=== PATIENT | female | born 1960 | race Hispanic/Latino ===

== ENCOUNTER 2020-02-10 13:39 | Emergency (ER) | payer SELFPAY ==
[2020-02-10 14:06] VITALS: BP 142/65
--- NOTE | 2020-02-10 14:37 | XRay Report ---
CHEST 1 VIEW INDICATION: Chest Pain. COMPARISON: None FINDINGS: SUPPORT DEVICES: None. HEART: Within normal limits. LUNGS/PLEURA: Large amount of overlying breast tissue at least in part obscures evaluation of the chuck g bases; however, the lungs are grossly clear. ADDITIONAL FINDINGS: None. IMPRESSION: 1. Grossly clear lungs as described above. Signer Name: Jeremy Enciso MD Signed: 02/10/2020 2:32 PM Workstation Name: [id number]
--- NOTE | 2020-02-10 15:59 | Emergency Department Report ---
ED Chest Pain HPI - General Chief Complaint: Chest Pain Stated Complaint: SHORTNESS OF BREATH Time Seen by Provider: 02/10/20 14:08 Source: patient, EMS Mode of arrival: Stretcher Limitations: No Limitations - History of Present Illness Initial Comments: This is a 59-year-old lady with a variety of complaints. She states that she has soreness and her left anterior thigh for the last few days. Today she developed soreness around her left shoulder and left pectoral area with some left upper arm soreness as well. She states that these areas are tender and that the tenderness increases on movement. She states that she made an appointment for tomorrow with a electrophysiology nurse practitioner in [place]. She admits to be under excessive stress. 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 She also tells me that she has had episodes of exertional chest pain which is different and more like a pressure in her substernal area. She states that the last time this happened was 2 to 3 weeks ago. Patient denies any associated nausea vomiting sweating or shortness of breath with the above left arm chest and thigh pain. She is not been coughing. She has no history of cardiovascular work-up. She has no history of venous thromboembolism. She states that she has not been to a physician for evaluation of chest pain in the past. MD Complaint: chest pain -: Gradual, week(s) Onset: during rest Pain Location: left chest Severity: moderate Severity scale (0 -10): 5 Quality: aching Consistency: intermittent Improves With: nothing Worsens With: nothing re: denies: nausea, vomting, diaphoresis Other Symptoms: denies: cough, fever, syncope Treatments Prior to Arrival: none Aspirin use within the Past 7 Days: (0) No - Related Data Allergies Allergy/AdvReac Type Severity Reaction Status Date / Time No Known Allergies Allergy Verified 02/10/20 13:49 Heart Score - HEART Score History: Slightly suspicious EKG: Normal Age: < 45 Risk factors: No known risk factors Troponin: < normal limit HEART Score: 0 - Critical Actions Critical Actions: 0-3 pts:0.9-1.7%risk of adverse cardiac event.Candidate for discharge ED Review of Systems ROS: Stated complaint: SHORTNESS OF BREATH Other details as noted in HPI Constitutional: denies: chills, fever Eyes: denies: eye pain, eye discharge, vision change ENT: denies: ear pain, throat pain Respiratory: denies: cough, shortness of breath, wheezing Cardiovascular: chest pain. denies: palpitations Endocrine: no symptoms reported Gastrointestinal: denies: abdominal pain, nausea, diarrhea Genitourinary: denies: urgency, dysuria, discharge Musculoskeletal: as per HPI, myalgia. denies: back pain, joint swelling, arthralgia Skin: denies: rash, lesions Neurological: denies: headache, weakness, paresthesias Psychiatric: denies: anxiety, depression Hematological/Lymphatic: denies: easy bleeding, easy bruising ED Past Medical Hx - Past Medical History Previous Medical History?: Yes Hx Hypertension: Yes Hx Diabetes: Yes - Surgical History Past Surgical History?: No - Social History Smoking Status: Never Smoker Substance Use Type: None ED Physical Exam - General Limitations: No Limitations General appearance: alert, in no apparent distress - Head Head exam: Present: atraumatic, normocephalic - Eye Eye exam: Present: normal appearance. Absent: scleral icterus - ENT ENT exam: Present: mucous membranes moist - Neck Neck exam: Present: normal inspection - Respiratory Respiratory exam: Present: normal lung sounds bilaterally. Absent: respiratory distress - Cardiovascular Cardiovascular Exam: Present: regular rate, normal rhythm. Absent: systolic mu rmur, diastolic murmur, rubs, gallop - GI/Abdominal GI/Abdominal exam: Present: soft, normal bowel sounds. Absent: distended, tenderness, guarding, rebound, rigid - Extremities Exam Extremities exam: Present: normal inspection, full ROM, normal capillary refill. Absent: tenderness, pedal edema, joint swelling, calf tenderness - Back Exam Back exam: Present: normal inspection - Neurological Exam Neurological exam: Present: alert, oriented X3, CN II-XII intact. Absent: motor sensory deficit - Psychiatric Psychiatric exam: Present: normal affect, normal mood - Skin Skin exam: Present: warm, dry, intact, normal color. Absent: rash ED Course Vital Signs 02/10/20 14:04 Temperature 98.2 F Pulse Rate 73 Respiratory 17 Rate Blood Pressure 142/65 [Right] O2 Sat by Pulse 95 Oximetry - Reevaluation(s) Reevaluation #1: Patient referred to Dr. Ramirez, hospitalist for disposition. 02/10/20 17:16 ED Medical Decision Making - Lab Data Result diagrams: 02/10/20 15:22 02/10/20 15:22 Laboratory Results - last 24 hr 02/10/20 15:22 WBC 11.1 H RBC 4.60 Hgb 13.2 Hct 40.6 MCV 88 MCH 29 MCHC 33 RDW 13.9 Plt Count 285 Lymph % (Auto) 18.6 Power % (Auto) 7.5 H Eos % (Auto) 1.5 Baso % (Auto) 1.1 Lymph # (Auto) 2.1 Power # (Auto) 0.8 Eos # (Auto) 0.2 Baso # (Auto) 0.1 Seg Neutrophils % 71.3 H Seg Neutrophils # 7.9 H Laboratory Results - last 24 hr 02/10/20 02/10/20 02/10/20 15:22 15:22 15:22 WBC 11.1 H RBC 4.60 Hgb 13.2 Hct 40.6 MCV 88 MCH 29 MCHC 33 RDW 13.9 Plt Count 285 Lymph % (Auto) 18.6 Power % (Auto) 7.5 H Eos % (Auto) 1.5 Baso % (Auto) 1.1 Lymph # (Auto) 2.1 Power # (Auto) 0.8 Eos # (Auto) 0.2 Baso # (Auto) 0.1 Seg Neutrophils % 71.3 H Seg Neutrophils # 7.9 H PT 13.2 INR 0.99 APTT 25.8 D-Dimer 135.00 Troponin T < 0.010 - EKG Data -: EKG Interpreted by Dc EKG shows normal: sinus rhythm, axis (Left), intervals, QRS complexes, ST-T waves Rate: normal - EKG Data Interpretation: nonspecific ST-T wave lissy - Radiology Data Radiology results: report reviewed, image reviewed (No acute findings) Critical care attestation.: If time is entered above; I have spent that time in minutes in the direct care of this critically ill patient, excluding procedure time. ED Disposition Clinical Impression: Chest pain Qualifiers: Chest pain type: unspecified Qualified Code(s): R07.9 - Chest pain, unspecified Disposition: OP ADMIT IP TO THIS HOSP Is pt being admited?: No Does the pt Need Aspirin: Yes Condition: Stable Instructions: Chest Pain (ED) Additional Instructions: As per Dr. Ramirez. Referrals: RADHA BRENNANJUAN J GUZMAN MD [Primary Care Provider] - 3-5 Days Time of Disposition: 19:15
[2020-02-10 16:05] LABS: Basophils # (Auto) 0.1 K/mm3 (0.0-0.1); Basophils % (Auto) 1.1 % (0.0-1.8); Eosinophils # (Auto) 0.2 K/mm3 (0.0-0.4); Eosinophils % (Auto) 1.5 % (0.0-4.3); Hematocrit 40.6 % (30.3-42.9); Hemoglobin 13.2 gm/dl (10.1-14.3); Lymphocytes # (Auto) 2.1 K/mm3 (1.2-5.4); Lymphocytes % (Auto) 18.6 % (13.4-35.0); Mean Corpuscular HGB Conc 33 % (30-34); Mean Corpuscular Volume 88 fl (79-97); Monocytes # (Auto) 0.8 K/mm3 (0.0-0.8); Monocytes % (Auto) 7.5 % (0.0-7.3); Platelet Count 285 K/mm3 (140-440); Red Cell Distribution Width 13.9 % (13.2-15.2)
[2020-02-10 16:17] LABS: INR 0.99 (0.87-1.13); Partial Thromboplastin Time 25.8 Sec. (24.2-36.6)
[2020-02-10 16:38] LABS: Alanine Aminotransferase 14 units/L (7-56); Blood Urea Nitrogen 19 mg/dL (7-17); Calcium 9.7 mg/dL (8.4-10.2); Hemolysis Index 54
[2020-02-10 16:53] LABS: BUN/Creatinine Ratio 38; Bilirubin,Direct < 0.2 mg/dL (0-0.2)
[2020-02-10] MEDS ORDERED: ASPIRIN 325 MG TAB PO ONE (19:15)
== END 2020-02-10 19:56 | disposition admitted as inpatient to this hospital (09) ==
LOC: ED 13:39
DX: R07.89 Other chest pain (principal); R06.02 Shortness of breath; I10 Essential (primary) hypertension; E11.9 Type 2 diabetes mellitus without complications
CPT/HCPCS: 36415; 71045; 80048; 80076; 84484; 85025; 85379; 85610; 85730; 93005